=== PATIENT | male | born 1945 ===

== ENCOUNTER 2019-04-01 17:10 | Emergency (ER) | payer OTHER ==
[~2019-04-01] VITALS: Ht 165.1 cm; Wt 90.7 kg
[~2019-04-01 17:10] MED LIST: LANTUS SOLOSTAR3 ML; NUCYNTA50 MG PO
[2019-04-01] MEDS ORDERED: HYDROCHLOROTHIA25 MG PO (17:59)
[2019-04-01] MEDS ORDERED: TOPROL XL50 M1 PO (18:00)
[2019-04-01] MEDS ORDERED: AMLODIPINE-OLM1 EAC2 PO (18:00)
[2019-04-01] MEDS ORDERED: ELIQUIS5 MG PO (18:00)
[2019-04-01] MEDS ORDERED: LIPITOR20 MG PO (18:00)
[2019-04-01] MEDS ORDERED: GLIMEPIRIDE4 M1 PO (18:01)
[2019-04-01] MEDS ORDERED: SYNJARDY 5-1,01 EACH PO (18:01)
[2019-04-01] MEDS ORDERED: MONTELUKAST SODI4 M1 PO (18:01)
[2019-04-01] MEDS ORDERED: TAMS0.4C PO (18:01)
== END 2019-04-01 22:53 | disposition home or self-care (01) ==
LOC: ER 17:10
DX: J45.901 Unspecified asthma with (acute) exacerbation (principal)